=== PATIENT | male | born 1950 | race Two or more races ===

== ENCOUNTER 2019-01-12 06:16 | Day surgery (SDC) | payer OTHER ==
[~2019-01-12 06:16] MED LIST: COZAAR50 MG PO; METFORMIN HCL500 MG PO; SIMVASTATIN40 MG PO
== END 2019-01-12 11:15 | disposition home or self-care (01) ==
LOC: CIR.AMB 06:16
DX: M65.842 Other synovitis and tenosynovitis, left hand (principal)

== ENCOUNTER 2021-04-24 05:50 | Day surgery (SDC) | payer OTHER ==
[~2021-04-24 05:50] MED LIST changes: +ATORVASTATIN CA40 MG PO; +METFOR PO
== END 2021-04-24 12:15 | disposition home or self-care (01) ==
LOC: CIR.AMB 05:50
PROVIDERS: ATTEND Surgery Surgery of the Hand
DX: M65.841 Other synovitis and tenosynovitis, right hand (principal); Z20.822 Contact with and (suspected) exposure to COVID-19

== ENCOUNTER 2024-01-13 10:07 | Outpatient (CLI) | payer OTHER | END 2024-01-13 10:12 | disposition home or self-care (01) | LOC: RAD 10:07 | PROVIDERS: ATTEND Orthopaedic Surgery | DX: M25.511 Pain in right shoulder (principal); M25.512 Pain in left shoulder ==

== ENCOUNTER → 2024-01-18 08:07 | Outpatient (CLI) | payer OTHER ==
[2024-01-18 09:19] LABS: HEMATOCRIT 41.8 % (39.0-48.0); HEMOGLOBIN 13.9 g/dL (13-16.00); MEAN CELL VOLUME 79.7 fL (80.0-100.00); MEAN CORPUSCULAR HEMOGLOBIN 26.5 pg (27.00-32.0); MEAN CORPUSCULAR HGB CONC 33.2 g/dl (32.0-36.0); RED BLOOD COUNT 5.24 M/uL (4.00-6.00); RED CELL DISTRIBUTION WIDTH 14.3 % (11.5-14.5)
[2024-01-18 09:29] LABS: PLATELET COUNT 132 K/uL (150-450)
[2024-01-18 09:38] LABS: URINE APPEARANCE Clear; URINE BILIRRUBIN Negative (NEGATIVE); URINE BLOOD Negative; URINE COLOR Yellow; URINE GLUCOSE Negative (NEGATIVE); URINE LEUKOCYTE Trace; URINE NITRATE Negative; URINE PROTEIN Negative (NEGATIVE); URINE UROBILINOGEN 0.2 E.U./dl
[2024-01-18 09:42] LABS: URINE RBC 4.7 uL (0.0-20.8); URINE WBC 13.2 uL (0.0-23.2)
[2024-01-18 09:43] LABS: INR 0.97; PARTIAL THROMBOPLASTIN TIME 28.3 SECONDS (22.0-34.0); PROTHROMBIN TIME 10.2 SECONDS (9.0-11.5)
[2024-01-18 09:46] LABS: URINE EPITHELIAL CELLS 0.9 uL (0.0-38.8)
[2024-01-18 10:03] LABS: ALBUMIN 3.8 gm/dL (3.4-5.0); BILIRUBIN TOTAL 0.85 mg/dL (0.3-1.2); CREATININE SERUM 1.02 mg/dL (0.70-1.30); GFR 71.79; GLOBULINA 2.6 G/DL (2.4-3.5); POTASSIUM 4.07 mEq/L (3.5-5.1); TOTAL PROTEIN 6.4 gm/dL (6.4-8.2)
[2024-01-18 10:22] LABS: COL EPI 105 SECONDS (82-175)
== END | disposition home or self-care (01) ==
LOC: LAB 08:07
PROVIDERS: ATTEND Orthopaedic Surgery
DX: D64.9 Anemia, unspecified (principal); D68.8 Other specified coagulation defects; N39.0 Urinary tract infection, site not specified; E03.9 Hypothyroidism, unspecified; E11.9 Type 2 diabetes mellitus without complications; I10 Essential (primary) hypertension; Z76.89 Persons encountering health services in other specified circumstances